=== PATIENT | female | born 1960 | race Caucasian/White ===

== ENCOUNTER → 2016-10-21 | Outpatient (CLI) | payer OTHER ==
[~2016-10-21] MED LIST: ACIPHEX 20 MG T20 M1 PO; COUMADIN 2 MG TA2 M1 PO; COUMADIN 5 MG TA5 M1; COUMADIN 5 MG TA5 M1 PO; HYDROCODON-ACE1 EAC1 PO; HYDROCODON-ACE1 EAC5 PO; HYDROCODON-ACE1 EAC8 PO; LEXAPRO20 MG PO; MOBIC15 MG PO; MULTIVITAMINS PO; NEUPRO1 EAC3 PO; NEUPRO1 EAC3 TRANSDERM; OXYCONTIN10 M1 PO; PERCOCET 10-321 EACH PO; SYNTHROID175 MCG PO; THERA-M CAPLET1 EACH PO; VESICARE10 M1 PO
== END ==
LOC: NUC 05:02
DX: N95.9 Unspecified menopausal and perimenopausal disorder (principal)

== ENCOUNTER → 2019-05-03 | Outpatient (CLI) | payer OTHER | LOC: CAT 09:34 | DX: Z13.6 Encounter for screening for cardiovascular disorders (principal); E78.00 Pure hypercholesterolemia, unspecified; I25.10 Atherosclerotic heart disease of native coronary artery without angina pectoris ==

== ENCOUNTER → 2019-05-03 | Outpatient (CLI) | payer OTHER | LOC: BC 09:47 | DX: Z12.31 Encounter for screening mammogram for malignant neoplasm of breast (principal) ==

== ENCOUNTER → 2019-07-05 | Outpatient (CLI) | payer OTHER ==
[~2019-07-05] VITALS: Ht 175.3 cm; Wt 131.5 kg
[~2019-07-05] MED LIST changes: +ACIPHEX 20 MG T20 MG PO; +BENICAR20 MG PO; +GLUCOPHAGE XR500 MG PO; +JARDIANCE10 MG PO; +LIPITOR20 MG PO; +TRULICITY1.5 MG/0.5 SUBQ; +VITAMIN D1000 UNI1 PO; +WELLBUTRIN SR150 MG PO
--- NOTE | 2019-07-08 12:48 | P ---
[facility] [place] [place] [address] PROCEDURE REPORT Name: BRUCE CHIN Room #: REG [facility].#: [id number] Admission: 07/05/19 Attend Phys: Evan Kraus Discharge: Date of : 58 Report #: [id number] THIS REPORT FOR: //name// CC: Evan Chin MD DATE OF SERVICE: 07/05/2019 PROCEDURE PERFORMED: Colonoscopy. HISTORY OF PRESENT ILLNESS: The patient is a 59-year-old female who presents today for a routine screening colonoscopy. She denies any symptoms. No family history of colon cancer. DESCRIPTION OF PROCEDURE: The risks and benefits of the procedure were explained to the patient, those risks including but not limited to bleeding, perforation and the risk of sedation. She understood these risks and gave informed consent. Sedation was given using propofol per anesthesia. Next, a digital rectal exam was initially performed, which was normal. Next, using a standard Olympus colonoscope, the scope was placed in the patient's anus and advanced under direct vision to the cecum. The overall prep was excellent. The cecum and ileocecal valve were normal in appearance. Ascending, transverse, descending and sigmoid colon were all normal. The rectal mucosa was normal. On retroflexion, small internal hemorrhoid was noted, otherwise normal colonoscopy. The scope was then withdrawn and the procedure terminated. The patient tolerated the procedure well. IMPRESSION: 1. Small internal hemorrhoids. 2. Otherwise, normal colonoscopy. RECOMMENDATIONS: Repeat colonoscopy in 10 years. Thank you for allowing me to participate in her care. <ELECTRONICALLY SIGNED> By: Evan Monroe MD 07/08/19 1248 0947 0143 Evan Monroe MD /nt
--- NOTE | 2019-07-08 12:48 | P ---
[facility] [place] [address] [place] [address] PROCEDURE REPORT Name: BRUCE CHIN Room #: REG [facility].#: [id number] Admission: 07/05/19 Attend Phys: Evan Kraus Discharge: Date of : 58 Report #: [id number] THIS REPORT FOR: //name// CC: Evan Chin MD DATE OF SERVICE: 07/05/2019 PROCEDURE PERFORMED: Upper endoscopy with biopsies and esophageal dilation. HISTORY OF PRESENT ILLNESS: The patient is a 59-year-old female with a history of gastroesophageal reflux disease, currently taking Aciphex on a daily basis. Reports dysphagia for the last several months, also possible history of celiac disease, not following a gluten-free diet in general. Plan is for EGD and colonoscopy today. DESCRIPTION OF PROCEDURE: The risks and benefits of the procedure were explained to the patient, those risks including but not limited to bleeding, perforation and the risk of sedation. She understood these risks and gave informed consent. Sedation was given using propofol per anesthesia. Next, using a standard Olympus upper endoscope, the scope was placed in the patient's mouth and advanced under direct vision through the esophagus, stomach and into the second portion of the duodenum. The larynx was normal in appearance. The upper and mid esophagus was normal. No evidence of stricture or esophagitis. However, a small pink mucosal tongue was noted. Biopsies were obtained to rule out the possibility of Castillo's esophagus. Overall, the gastric mucosa was normal. The pylorus was normal and patent. The duodenal bulb, first and second portion were all normal. Biopsies were obtained to rule out celiac sprue. The scope was then brought back up into the patient's stomach and a Savary guidewire was inserted through the scope, leaving the guidewire in place as the scope was then withdrawn. Next, a 51-Kazakh Savary dilation of the esophagus was performed without difficulty. The wire and dilator removed. The scope was reintroduced into the patient's stomach. There was no evidence of mucosal tear after dilation. The scope was then withdrawn and the procedure terminated. The patient tolerated the procedure well. IMPRESSION: 1. Possible short segment of Castillo's. 2. Otherwise, normal upper endoscopy. RECOMMENDATIONS: 1. Await biopsy results. 2. Continue daily PPI therapy. 3. Observe the patient post-dilation. [address] [address] PROCEDURE REPORT Name: GIUSEPPEBRUCE Room #: REG [facility]#: [id number] Admission: 07/05/19 Attend Phys: Evan Kraus Discharge: Date of : 58 Report #: [id number] Thank you for allowing me to participate in her care. <ELECTRONICALLY SIGNED> By: Evan Monreo MD 07/08/19 1248 0914 0147 Evan Monroe MD /tomeka
--- NOTE | 2019-07-08 17:07 | PATH ---
[facility] [place] [address] PATHOLOGY RPT PROCEDURE Name: KIMBERLY CHIN Room #: REG [facility] Hailey.Jovon.#: [id number] Admission: 07/05/19 Date of : 58 Discharge: Report #: [id number] Path Case #: [id number] [facility] Accession Number: [id number] . 01 Material submitted: . PART A: duodenum - DUODENAL BX PART B: esophagus - ESOPHAGUS BX . 01 Clinical history: . GERD, history of sprue, dysphagia BX, normal colon A rule out celiac B rule out Castillo's . 02 Diagnosis: A. Small bowel mucosa, duodenum, endoscopic biopsy: - No significant diagnostic abnormalities present. - Negative for villous blunting or increase in intraepithelial lymphocytes. . B. Gastroesophageal mucosa, esophagus rule out Castillo's, endoscopic biopsy: - Gastric cardia-type mucosa with mild chronic inflammation. - Squamous mucosa with mild esophagitis and changes compatible with reflux. - Negative for intestinal metaplasia or dysplasia. (IUV/db; 07/08/2019) LBQ 07/08/2019 1314 Local . 02 Electronically signed: . Dacia Edwards MD, Pathologist NPI- [id number] . 01 Gross description: . . A. The specimen is received in formalin, labeled "[place], Kimberly, duodenal BX" and consists of 4 fragments of samson tissue measuring between 0.3 x 0.2 cm and 0.4 x 0.3 cm which are entirely submitted in A1. . B. The specimen is received in formalin, labeled "[place], Kimberly, esophagus BX" and consists of a translucent fragment of pink-vallecillo tissue measuring 0.6 x 0.4 x 0.1 cm which is entirely submitted in B1. (SDY; 07/05/2019) SYU/SYU 07/05/2019 1703 Local . 02 Pathologist provided ICD-10: K21.0, K21.9, Z87.19, R13.[address] [address] PATHOLOGY RPT PROCEDURE Name: GIUSEPPEKIMBERLY HELTON Room #: REG [facility].#: [id number] Admission: 07/05/19 Date of : 58 Discharge: Report #: [id number] Path Case #: [id number] . 02 CPT . 757127, [id number] Specimen Comment: A courtesy copy of this report has been sent to Specimen Comment: [phone], . Specimen Comment: Report sent to / DR CHIN Performed at: [address], [place], [place] [id number] MD Dillon Kimble MD Phone: [phone] Performed at: [address] [id number] MD Dacia Edwards MD Phone: [phone]
== END | disposition home or self-care (01) ==
LOC: GI 08:00
DX: Z12.11 Encounter for screening for malignant neoplasm of colon (principal); K64.8 Other hemorrhoids; K21.0 Gastro-esophageal reflux disease with esophagitis; K29.50 Unspecified chronic gastritis without bleeding; R13.19 Other dysphagia; Z87.19 Personal history of other diseases of the digestive system; E11.9 Type 2 diabetes mellitus without complications; E03.9 Hypothyroidism, unspecified; F32.9 Major depressive disorder, single episode, unspecified; Z90.49 Acquired absence of other specified parts of digestive tract; Z96.653 Presence of artificial knee joint, bilateral; Z98.890 Other specified postprocedural states; Z98.51 Tubal ligation status; Z79.899 Other long term (current) drug therapy; Z88.2 Allergy status to sulfonamides
CPT/HCPCS: 62110; 62900

== ENCOUNTER → 2020-10-15 | Outpatient (CLI) | payer OTHER ==
[2020-10-15 08:50] LABS: ABSOLUTE NEUTROPHILS 4.3 thou/uL (1.4-8.2); BASOPHILS 1.1 % (0.0-2.0); EOSINOPHILS 2.4 % (0.0-3.0); HEMATOCRIT 43.5 % (37.0-47.0); HEMOGLOBIN 13.9 gm/dL (12.0-15.0); LYMPHOCYTES 19.1 % (24.0-44.0); MCH 28.9 pg (26.0-34.0); MCHC 32.1 g/dL (28.0-37.0); MONOCYTES 11.2 % (1.0-8.0); PLATELET COUNT 243 thou/uL (150-400); POLYS 66.2 % (36.0-66.0); RBC 4.83 mil/uL (4.20-5.00); RDW 13.6 % (10.5-14.5); WBC 6.5 thou/uL (4.0-11.0)
[2020-10-15 09:10] LABS: ALBUMIN 3.5 g/dL (3.4-5.0); ANION GAP 9 mmol/L (7-16); BUN 16 mg/dL (7-18); CALCIUM 9.3 mg/dL (8.5-10.1); CHLORIDE 103 mmol/L (98-107); CHOLESTEROL 124 mg/dL (<200); CO2 27 mmol/L (21-32); CREATININE 1.1 mg/dL (0.6-1.0); GLUCOSE 110 mg/dL (74-106); HDL CHOLESTEROL 51 mg/dL (>40); LDL CHOLESTEROL 59 mg/dL (<100); POTASSIUM 4.7 mmol/L (3.5-5.1); SGOT 25 U/L (15-37); SGPT 36 U/L (30-65); SODIUM 139 mmol/L (136-145); TC:HDL 2.4 Ratio (Not establshd); TOTAL BILIRUBIN 0.7 mg/dL (0.2-1.0); TOTAL PROTEIN 7.1 g/dL (6.4-8.2); TRIGLYCERIDE 72 mg/dL (<150); VLDL 14 mg/dL (<40)
[2020-10-15 14:08] LABS: LUTEINIZING HORMONE (LH) 29.4 mIU/mL (())
[2020-10-16 01:06] LABS: GLYCOHEMOGLOBIN (HGB A1C) 6.1 % (4.8-5.6)
== END ==
LOC: ULTRA 07:27
PROVIDERS: ATTEND Neuromusculoskeletal Medicine & OMM
DX: Z12.31 Encounter for screening mammogram for malignant neoplasm of breast (principal); N95.0 Postmenopausal bleeding

== ENCOUNTER → 2020-12-21 | Outpatient (CLI) | payer OTHER ==
[~2020-12-21] MED LIST changes: +GLUCOPHAGE XR500 M1 PO; -GLUCOPHAGE XR500 MG PO; +PRESERVISION A1 EAC2 PO; -VITAMIN D1000 UNI1 PO; +VITAMIN D350 MCG PO
== END ==
LOC: LAB 14:23
PROVIDERS: ATTEND Obstetrics & Gynecology
DX: Z01.812 Encounter for preprocedural laboratory examination (principal); Z20.822 Contact with and (suspected) exposure to COVID-19

== ENCOUNTER → 2020-12-25 | Day surgery (SDC) | payer OTHER ==
[~2020-12-25] VITALS: Ht 175.3 cm; Wt 131.5 kg
[~2020-12-25] MED LIST changes: +NORCO5 PO
--- NOTE | ~2020-12-25 | O ---
[facility] [place] [address] OPERATIVE REPORT Name: BRUCE CHIN SUNITHA Room #: REG [facility].#: [id number] Admission: 12/25/20 Attend Phys: Gena Adame DO Discharge: Date of : 58 Report #: [id number] THIS REPORT FOR: cc: Roberto Chin Steven F. DO Farris,Gena Graham DO ~ DATE OF SERVICE: 12/25/2020 PREOPERATIVE DIAGNOSES: 1. Postmenopausal bleeding. 2. Endometrial polyp. POSTOPERATIVE DIAGNOSES: 1. Postmenopausal bleeding. 2. Endometrial polyp. OPERATION PERFORMED: Hysteroscopy, dilatation and curettage and polypectomy with MyoSure. SURGEON: Dr. Gena Adame. ANESTHESIA: General. INTRAVENOUS FLUIDS: 600 mL. URINE OUTPUT: 150 mL. ESTIMATED BLOOD LOSS: 10 mL. COMPLICATIONS: None. PATHOLOGY FOR SPECIMEN: Endometrial curetting and endometrial polyp. DESCRIPTION OF PROCEDURE: The patient was taken to the operating room where general anesthesia was administered and found to be adequate. She was then prepped and draped in the normal sterile fashion in dorsal lithotomy position. A red rubber catheter was placed in the patient's bladder. The bladder was drained of urine. A weighted speculum was placed in the patient's vagina. The anterior lip of the cervix was identified and grasped with a single tooth tenaculum. The uterus was then gently sounded to approximately 9 cm. The cervix was dilated with graduated Hegar dilators and a 5.5 mm hysteroscope was placed through the cervix, gently advanced into the uterus. A survey of the patient's uterine cavity revealed multiple endometrial polyps along with what appeared to be either an anterior uterine fibroid or an anterior scar uterine septum. Once a survey of the cavity was performed, the MyoSure was then placed [address] [address] OPERATIVE REPORT Name: BRUCE CHIN Room #: REG [facility].#: [id number] Admission: 12/25/20 Attend Phys: Gena Adame DO Discharge: Date of : 58 Report #: [id number] through the working channel of the operative hysteroscope and polypectomy was performed of 3 various polyps and further endometrial curettings were obtained circumferentially throughout the cavity. The MyoSure was then removed. Hemostasis was noted at all biopsy sites as well as all polypectomy sites. The hysteroscope was removed from the patient's uterus. The tenaculum was removed from the patient's cervix. Excellent hemostasis was noted at the tenaculum site. All instruments were then removed from the patient's vagina. Hysteroscopic input 5136, the deficit 185. The patient tolerated the procedure well. Sponge and instrument counts were reported as correct and the patient was taken to the recovery room in stable condition. By: 1449 Sonja Adame DO /nt
[2020-12-25 09:00] LABS: HEMATOCRIT 43.6 % (37.0-47.0); HEMOGLOBIN 14.3 gm/dL (12.0-15.0); MCH 29.5 pg (26.0-34.0); MCHC 32.8 g/dL (28.0-37.0); RBC 4.85 mil/uL (4.20-5.00); RDW 13.6 % (10.5-14.5); WBC 7.3 thou/uL (4.0-11.0)
--- NOTE | 2020-12-25 09:23 | EKG ---
[place] [address] [facility] [place] [address] ELECTROCARDIOGRAM REPORT Name: BRUCE CHIN Room #: REG [facility].#: [id number] Admission: 12/25/20 Attend Phys: Gena Adame DO Discharge: Date of : 58 Report #: [id number] [facility] Test Date: 2020-12-25 Test Time: 08:38:28 Pat Name: BRUCE CHIN Department: Room: Gender: F Code Clerk: : 1960 Requested By: Lisa Guevara Order Number: [id number] MD: Sina Rainey Measurements Intervals [place] Rate: 76 P: 40 RI: 173 QRS: 32 QRSD: 103 T: 9 QT: 417 QTc: 469 Interpretive Statements Sinus rhythm No significant abnormality Compared to ECG 08/20/2002 14:28:[address] segment abnormality no longer present Electronically Signed On 12-25-2020 9:23:12 CDT by Sina Rainey [email or web address] <ELECTRONICALLY SIGNED> By: Sina Rainey MD, [facility] 12/25/20 0923 0838 7 Sina Rainey MD, FACC /EPI
[2020-12-25 10:42] VITALS: BP 155/53
[2020-12-25 12:22] VITALS: BP 155/53
--- NOTE | 2020-12-30 09:08 | PATH ---
[facility] [address] [place] [address] PATHOLOGY RPT PROCEDURE Name: KIMBERLY CHIN Room #: REG [facility] M.R.#: [id number] Admission: 12/25/20 Date of : 58 Discharge: Report #: [id number] Path Case #: [id number] [facility] Accession Number: [id number] . 01 Material submitted: . endometrium - ENDOMETRIAL CURETTING, UTERINE OR ENDOMETRIAL POLYP . 01 Clinical history: . HYSTEROSCOPY DILATION AND CURETTAGE POLYPECTOMY POSTMENOPAUSAL BLEEDING, POLYP OF CORPUS UTERI, ENDOMETRIAL HYPERPLASIA . 02 Diagnosis: Uterus, endometrial curetting (uterine or endometrial polyp): - Multiple fragments of an endometrial polyp with simple and complex hyperplasia showing tubal and papillary metaplasia as well as areas of breakdown. - Negative for malignancy within the polyp. - Background endometrium showing inactive (atrophic) features along with cystic dilated glands; negative for hyperplasia. (IUV:vikki; 12/28/2020) MBR 12/30/2020 0847 Local . 02 Electronically signed: . Dacia Edwards MD, Pathologist NPI- [id number] . 01 Gross description: . Received in formalin labeled "Graham, Kimberly, endometrial curettings and endometrial polyp" is a 4.6 x 2.9 x 0.4 cm aggregate of red-brown friable soft tissue fragments. The specimen is submitted entirely in A1-A2. ([facility]; 12/26/2020) GZA/GZA 12/26/2020 1301 Local . 02 Pathologist provided ICD-10: N84.0, N85.01, N85.8 . 02 CPT . 076533 Specimen Comment: A courtesy copy of this report has been sent to [phone] Specimen Comment: [phone] Specimen Comment: Report sent to / Performed at: 01 [place] [address] PATHOLOGY RPT PROCEDURE Name: KIMBERLY CHIN Room #: REG [facility]..#: [id number] Admission: 12/25/20 Date of : 58 Discharge: Report #: [id number] Path Case #: [id number] [address] [id number] MD Jose Mesnah MD Phone: [phone] Performed at: [address] [id number] MD Dacia Edwards MD Phone: [phone]
== END | disposition home or self-care (01) ==
LOC: OR 12-18 11:31
PROVIDERS: Anesthesiology; ATTEND Obstetrics & Gynecology
DX: N95.0 Postmenopausal bleeding (principal); N84.0 Polyp of corpus uteri; R93.89 Abnormal findings on diagnostic imaging of other specified body structures; E11.9 Type 2 diabetes mellitus without complications; E03.9 Hypothyroidism, unspecified; F32.9 Major depressive disorder, single episode, unspecified; K21.9 Gastro-esophageal reflux disease without esophagitis; Z98.890 Other specified postprocedural states; Z79.899 Other long term (current) drug therapy; Z90.49 Acquired absence of other specified parts of digestive tract; Z98.51 Tubal ligation status; Z96.653 Presence of artificial knee joint, bilateral; Z88.2 Allergy status to sulfonamides
CPT/HCPCS: 50010; 50101; 50386; 54171; 54172; 54173; 57160; 62110; 62900; 70005